=== PATIENT | male | born 1990 | race Caucasian/White ===

== ENCOUNTER 2019-08-16 11:14 | Emergency (ER) | payer MEDICAID ==
[~2019-08-16] VITALS: Ht 188 cm; Wt 71.7 kg
[~2019-08-16 11:14] MED LIST: ADDERALL5 MG PO; AMBIEN5 MG PO; ATARAX 25MG25 MG/TAB PO; CEPHALEXIN500 M1 PO; FLEXERIL 1010 MG/TAB PO; FLEXERIL10 MG PO; LORTAB 5/500 501 TAB PO; MOTRIN 800800 MG/TAB PO; NAPROXEN EC500 MG PO; NIX CREME RINSE60 M1 TP; NO HOME MEDICATIONS; NORCO 325 MG-51 TAB PO; PREDNISONE10 MG PO; PREDNISONE20 MG PO; RESPERDAL; RISPERDAL1 MG PO; TRILEPTAL300 MG PO; ZOFRAN ODT8 MG PO
[2019-08-16 11:23] VITALS: BP 138/75
[2019-08-16] MEDS ORDERED: CEPHALEXIN500 M1 PO (12:06)
[2019-08-16 12:14] VITALS: PULSE 70; TEMP 98.4
== END 2019-08-16 12:21 | disposition home or self-care (01) ==
LOC: COL.ER 11:14
DX: L02.512 Cutaneous abscess of left hand (principal); F31.9 Bipolar disorder, unspecified; F17.210 Nicotine dependence, cigarettes, uncomplicated; Z23 Encounter for immunization; Z85.71 Personal history of Hodgkin lymphoma

== ENCOUNTER 2019-09-09 20:38 | Emergency (ER) | payer SELFPAY ==
[~2019-09-09] VITALS: Ht 188 cm; Wt 70.0 kg
[2019-09-09 20:42] VITALS: BP 183/64; TEMP 98.7
[2019-09-09] MEDS ORDERED: NORCO 325 MG-51 TAB PO (22:33)
[2019-09-09 23:16] VITALS: PULSE 71
== END 2019-09-09 23:16 | disposition home or self-care (01) ==
LOC: COL.ER 20:38
DX: S93.401A Sprain of unspecified ligament of right ankle, initial encounter (principal); S93.601A Unspecified sprain of right foot, initial encounter; F17.210 Nicotine dependence, cigarettes, uncomplicated; W23.0XXA Caught, crushed, jammed, or pinched between moving objects, initial encounter
CPT/HCPCS: Q4045

== ENCOUNTER 2020-03-14 17:55 | Emergency (ER) | payer SELFPAY ==
[~2020-03-14] VITALS: Ht 185.4 cm; Wt 69.1 kg
[2020-03-14 18:01] VITALS: BP 165/130; TEMP 97.5
[2020-03-14 19:20] VITALS: PULSE 72
== END 2020-03-14 19:20 | disposition home or self-care (01) ==
LOC: COL.ER 17:55
DX: S80.12XA Contusion of left lower leg, initial encounter (principal); F17.210 Nicotine dependence, cigarettes, uncomplicated; Z85.71 Personal history of Hodgkin lymphoma; Z88.6 Allergy status to analgesic agent; V19.9XXA Pedal cyclist (driver) (passenger) injured in unspecified traffic accident, initial encounter